=== PATIENT | female | born 1985 ===

== ENCOUNTER 2016-04-24 23:50 | Emergency (ER) | payer SELFPAY | END 2016-04-25 01:22 | disposition left against medical advice (07) | LOC: ED 23:50 | DX: M54.2 Cervicalgia (principal); M54.9 Dorsalgia, unspecified; V89.2XXA Person injured in unspecified motor-vehicle accident, traffic, initial encounter; Y93.89 Activity, other specified; Y99.9 Unspecified external cause status; Y92.410 Unspecified street and highway as the place of occurrence of the external cause; Z53.21 Procedure and treatment not carried out due to patient leaving prior to being seen by health care provider ==